=== PATIENT | male | born 1990 ===

== ENCOUNTER 2020-08-10 21:47 | Day surgery (SDC) | payer OTHER, SELFPAY ==
[2020-08-10 22:15] VITALS: BP 145/81; PULSE 65; RESP 18; TEMP 36.6; O2SAT 99; BMI 27.0
--- NOTE | 2020-08-10 23:32 | ED.GENADULT ---
HPI - General Adult General Chief complaint: General Medical Stated complaint: diff swallowing Time Seen by Provider: 08/10/20 23:24 Source: patient Mode of arrival: ambulatory Limitations: no limitations History of Present Illness HPI narrative: 29-year-old male otherwise healthy who was eating dinner with his , patient felt that piece of chicken got stuck in the middle of his esophagus, patient since then feel a fullness in his mid chest, unable to swallow his own saliva, can not drink any fluids. Started 1 hour ago. Related Data Allergies Allergy/AdvReac Type Severity Reaction Status Date / Time No Known Allergies Allergy Verified 08/10/20 22:14 [No Known Allergies*] Review of Systems Review of Systems: All other systems are reviewed and are negative Constitutional: Reports as per HPI and Reports no additional constitutional complaints Eyes: Reports as per HPI and Reports no additional eye complaints Reports system reviewed and no additional complaints, except as documented Cardiovascular: Reports as per HPI and Reports no additional cardiovascular complaints Respiratory: Reports as per HPI and Reports no additional respiratory complaints Gastrointestinal: Reports as per HPI and Reports no additional gastrointestinal complaints Genitourinary: Reports no additional female genitourinary complaints Musculoskeletal: Reports no additional musculoskeletal complaints Skin/Breast: Reports system reviewed and no additional complaints, except as docu Psychiatric: Reports no additional psychiatric complaints Endocrine: Reports no additional endocrine complaints Hematologic/Lymphatic: Reports no additional hematologic/lymphatic complaints Allergic/Immunologic: Reports no additional allergic/immunologic complaints Reports system reviewed and no additional complaints, except as documented and Reports Abnormal speech present [facility] Past Medical History Medical History Patient denies medical problems Social History Social History Advance Directives: No Advance Directives Information Provided: No Physical Exam Vital Signs: Vital Signs: Last Vital Signs Temp 97.8 F 08/10/20 22:15 Pulse 65 08/10/20 22:15 Resp 18 08/10/20 22:15 BP 145/81 H 08/10/20 22:15 Pulse Ox 99 08/10/20 22:15 Body Mass Index 27.0 Vital signs have been reviewed as appeared to be correct. Blood pressure in the high range l. Heart rate normal. Respiration rate normal. Temperature normal. Oxygen saturation normal. Appearance: Alert. Oriented X3. No acute distress. Head: Normal external exam. Normocephalic. Atraumatic. No Shrestha signs noted. No raccoon eyes noted Eyes: PERRLA. EOMI. Conjunctiva and sclera normal. Eyelids normal. ENT: TM's Normal. Pharynx normal. Uvula midline. Moist mucous membranes. No trismus noted. No drooling noted. No muffled voice noted. Neck: Normal inspection. Neck supple. FROM. No adenopathy. Thyroid Normal. No meningeal signs. No neck mass noted. CVS: Normal heart rate and rhythm. Heart sound normal. No murmurs noted. Pulses normal throughout. Respiratory: No respiratory distress. Painless inspiration. Breath sounds normal. No wheezes/rales/rhonchi noted. Chest nontender. No accessory muscle usage noted or decreased air movement noted. Abdomen: Soft and nontender. Bowel sounds normal in all 4 quadrants. No distention noted. No organomegaly noted. No visible injury noted. Back: No CVA tenderness. Full range of motion noted. Skin: Skin warm and dry. Normal skin color. Normal skin turgor. No rashes/lesions/lacerations noted. Extremities: No lower extremity edema. Extremities exhibit normal range of motion. Extremities nontender. Neuro: Oriented X 3. No motor deficit. No sensory deficit. Reflexes normal. Patient was given 2 sips of water unable to pass it down with regurgitation. Course Course Course Narrative: Assessment and plan. 29-year-old male who has pieces of chicken stuck in his chest and unable to swallow fluids or saliva, the case discussed with Dr. Meyers on-call for GI who recommended to give the patient IV Protonix/1 mg of glucagon/Ativan to relax the patient. And keep the patient NPO and he will do him 1st case in the morning around 7:30 a.m. Discharge Plan Discharge Clinical Impression: Foreign body, swallowed Instructions: Esophageal Foreign Body (ED) Referrals: Jamel Meyers [Physician] - 2 days
[2020-08-11] MEDS: Pantoprazole Sodium 40 MG/10 ML VIAL IVPUSH (00:13)
[2020-08-11] MEDS: LORazepam 2 MG/ML VIAL 1 MG IVPUSH (00:13)
--- NOTE | 2020-08-11 00:40 | PC.NURSE ---
PT TRAILED FOR SWALLOW BY DR CERVANTES AND THICK SECRETION CAME UP. IV MEDICATION ORDER AND ADMINISTERED WITH NO EFFECT GASTRO WILL BE NO BE ABLE TO COME IN TO THE AM PT AWARE. SUCTION AT BEDSIDE. PT MOVED TO MAIN ED BED 11 REPORT GIVEN TO ARABELLA RAYMUNDO.
[2020-08-11 06:11] VITALS: BP 122/69; PULSE 57; RESP 14; TEMP 36.4; O2SAT 95
--- NOTE | 2020-08-11 06:33 | PC.NURSE ---
pt awaiting procudure for endoscopy with dr melara at approx 0730 for fb removal via endoscopy. pt a/o3 no distress noted. skin pink warm and dry.
[2020-08-11 07:24] VITALS: BP 132/84; PULSE 69; RESP 16; TEMP 36.7; O2SAT 99
--- NOTE | 2020-08-11 07:46 | PM.EVENT ---
Event Note Date of Service: 08/11/20 Event Note: GI Consult-Full note dictated Imp: 29 yo male with an esophageal obstruction refractory to medical therapy. Rec: EGD with possible dilation with MAC today. Full consent has been obtained from him for this, including risks of bleeding and perforation. D/W patient in detail and he is comfortable with this plan.
--- NOTE | 2020-08-11 07:49 | HO.ANESPROP2 ---
[facility] Active Problems Active Problems: All Active Problems (Updated 08/10/20 @ 23:43 by Carlyle Garcia MD) Foreign body, swallowed (Acute) Past Medical History Medical History Patient denies medical problems Social History Social History Smoking Status: Never smoker Smoked in Last 30 Days: No Use of substances other than those prescribed or required for medical reasons: Yes Have you been hit, kicked, punched, or otherwise hurt by someone within the past year? If so, by whom?: No Advance Directives: No Advance Directives Information Provided: No Meds Allergies Allergy/AdvReac Type Severity Reaction Status Date / Time No Known Allergies Allergy Verified 08/10/20 22:14 [No Known Allergies*] Exam Exam Date and Time: August 11, 2020 0749 Height,Weight and Vital Signs: Height 6 ft 3 in Weight 97.976 kg Last Vital Signs Temp 98.0 F 08/11/20 07:24 Pulse 69 08/11/20 07:24 Resp 16 08/11/20 07:24 BP 132/84 08/11/20 07:24 Pulse Ox 99 08/11/20 07:24 Airway Mallampati Class: II TM Dist: >3cm Neck ROM: Full Loose/Missing/Broken Teeth: No Heart: RRR Lungs: CTA Assessment and Plan Assessment Anesthesia Assessment: Anesthesia Plan Discussed and Chart Reviewed Final Anesthetic Review NPO: Yes ASA Class: I Final Preanesthetic Review: Meds/Allgs Chart Reviewed, Consent Obtained/Reviewed and Anes Risks/Benef Reviewed Patient Risk: Low Procedure Risk: Intermediate Anesthetic Plan Anesthetic Plan: MAC: Disposition: Standard PACU
[2020-08-11] MEDS: Lactated Ringers 500 ML 50 ML IV (07:57)
--- NOTE | 2020-08-11 08:19 | PM.OP ---
Brief Operative Note Date of Service: 08/11/20 Pre-op diagnosis: Esophageal obstruction Post-op diagnosis: other (Same, Hiatal hernia) Procedure: Upper endoscopy with removal of foreign body Surgeon: Jamel Meyers Anesthesia: MAC Estimated blood loss (mL): 4.0 Pathology: none sent Condition: stable Disposition: PACU
[2020-08-11 08:24] VITALS: BP 127/68; PULSE 71; RESP 17; TEMP 36.6; O2SAT 96
--- NOTE | 2020-08-11 08:36 | OP_ITS ---
SURGEON: Jamel Meyers MD INDICATIONS: The patient presents for an evaluation of acute esophageal obstruction. PREOPERATIVE DIAGNOSIS: Esophageal obstruction. POSTOPERATIVE DIAGNOSIS: PROCEDURE PERFORMED: Esophagogastroduodenoscopy with removal of foreign body. Full consent has been obtained from him for this, including risks of bleeding and perforation. ESTIMATED BLOOD LOSS: COMPLICATIONS: ANESTHESIA: Monitored anesthesia care. ASSISTANTS: SPECIMENS: POSTOPERATIVE DIAGNOSES: Esophageal obstruction. Hiatal hernia. DESCRIPTION OF PROCEDURE: The patient was placed in the left lateral decubitus position. The Olympus video gastroscope was passed in the posterior oropharynx and upper esophagus under direct vision. The scope was passed slowly to the distal esophagus. The food bolus was seen at approximately 39 cm and then pushed easily into the stomach. There was some heme noted at the EG junction. There was some mild inflammatory changes. There may have been some disruption of a previous stricture, but this was not definitive. The scope did enter the stomach. There was a small hiatal hernia. I did advance into the pylorus, but at that point, the patient did have some retching, and given the food and secretions in the stomach, I did not want to risk aspiration. The gastric antrum appeared normal. I did not retroflex due to his retching and risk of aspiration. The scope was straightened and withdrawn back through the esophagus. Other than the inflammatory changes at the EG junction and some heme, the esophageal mucosa appeared normal. I did not visualize any proximal esophageal rings. The scope was withdrawn from the patient. He tolerated the procedure well and was returned to the recovery area in stable condition. IMPRESSION: 1. Esophageal foreign body, status post removal. 2. Hiatal hernia. PLAN: The patient will be discharged later today. He will be started on omeprazole 20 mg daily for 1 month, but I do not think he needs to be on it chronically. I have instructed him to call my office for followup and I would arrange for a followup barium swallow to be sure he does not need repeat endoscopy with any type of balloon dilation. This has been discussed with his significant other. MD SILVIA Hays/KELLIE / [phone]
[2020-08-11 08:45] VITALS: BP 133/86; PULSE 65; RESP 18; TEMP 36.6; O2SAT 97
--- NOTE | 2020-08-11 11:51 | CONS_ITS ---
DATE OF SERVICE: 08/11/2020 REFERRING PHYSICIAN: Carlyle Garcia MD REASON FOR CONSULTATION: Dysphagia and esophageal foreign body. HISTORY OF PRESENT ILLNESS: This has been obtained from the patient. The patient is a 29-year-old healthy male, who describes a longstanding history of occasional symptoms of dysphagia while eating. Those episodes typically lasts just for a few minutes and be relieved either by drinking some fluids or occasionally needing to regurgitate. However, the symptoms were few and far between, and typically his eating was comfortable without any other episodes of dysphagia. Last night while eating chicken, he developed another episode of dysphagia, but this time did not resolve. He was unable to swallow saliva nor liquids. He came to the ER and was refractory to treatment with glucagon and anxiolytic. He presently is still has the same issue with inability to swallow saliva nor secretions. He has some lower sternal discomfort, but no other chest pain or trouble breathing. MEDICATIONS: At home, none. PAST MEDICAL HISTORY: He denies any medical problems such as diabetes, heart disease, stroke, nor kidney disease. SOCIAL HISTORY: He smokes some marijuana. He does not smoke cigarettes. He does not use any significant amounts of alcohol. FAMILY HISTORY: Noncontributory. REVIEW OF SYSTEMS: CONSTITUTIONAL: Up until dinner, he has been feeling well with good energy and good appetite. SKIN: No rash. No pruritus. CARDIAC: No previous chest pain. PULMONARY: No cough. No hemoptysis. GI: He denies any chronic heartburn, anorexia. No early satiety. His bowel movements have been regular without any sign of bleeding. He denies any chronic abdominal pain. No jaundice. URINARY: No dysuria. No hematuria. PHYSICAL EXAMINATION: GENERAL: The patient is a pleasant alert, well-appearing male. SKIN: Warm and dry. Anicteric sclerae. Moist mucous membranes. NECK: Supple without lymphadenopathy nor crepitus. CHEST: Clear bilaterally. CARDIAC: Normal S1, S2. ABDOMEN: Soft, nondistended, nontender without mass. IMPRESSION: Given the patient's clinical history, he will undergo upper endoscopy with possible dilation and removal of foreign body with monitored anesthesia care today. Full consent has been obtained from him for this, including risks of bleeding and perforation. This has been discussed with the patient in detail and he is comfortable with this plan. Thank you for this consultation. MD SILVIA Hays/KELLIE / [phone]
== END 2020-08-11 09:10 | disposition home or self-care (01) ==
LOC: HO.ED 08-11 07:29 → HO.SSS 08-11 08:49
PROVIDERS: Emergency Provider Emergency Medicine; Visit Provider Internal Medicine
PROC: 0DJ08ZZ Inspection of Upper Intestinal Tract, Via Natural or Artificial Opening Endoscopic (ICD-10-PCS; CPT 43235; principal; 2020-08-11 08:00)
DX: T18.128A Food in esophagus causing other injury, initial encounter (principal); R13.10 Dysphagia, unspecified; K44.9 Diaphragmatic hernia without obstruction or gangrene; X58.XXXA Exposure to other specified factors, initial encounter; Y93.89 Activity, other specified; Y92.009 Unspecified place in unspecified non-institutional (private) residence as the place of occurrence of the external cause; Y99.8 Other external cause status; F12.90 Cannabis use, unspecified, uncomplicated
CPT/HCPCS: 43247; 99284; J1610; J2060; J2405

== ENCOUNTER 2024-03-01 09:27 | Outpatient (REF) | payer OTHER, SELFPAY | END 2024-03-01 09:28 | disposition home or self-care (01) | LOC: HO.LNP 09:27 | PROVIDERS: PCP Internal Medicine; Visit Provider Surgery | DX: L72.11 Pilar cyst (principal) | CPT/HCPCS: 11424; 88304; 99202 ==

== ENCOUNTER 2024-03-01 09:27 | Outpatient (AMB) | payer OTHER, SELFPAY ==
--- NOTE | 2024-03-01 09:35 | MHC.OFFVIS ---
Vital Signs 03/01/24 09:41 Height 6 ft 3 in BP 142/73 H Blood Pressure Location Rt brachial Position Sitting Pulse 55 Intake Visit Reasons: cyst scalp Intake Note: Patient referred by [facility] for cyst on scalp. Finished cephalexin course. Patient c/o: reports completed one round of abx, cyst scalp. Criminal Legal Assistant Required: No Accompanied by: Self / Same As Patient Allergies No Known Allergies [No Known Allergies*] Allergy (Verified 03/01/24 09:39) Medication List - Last Reconciled 03/01/24 by Edmund Fitzgerald MD No Known Home Meds HPI Comments Details: Patient presents for evaluation of a right scalp cyst. He has had this indeterminate time. He has grown to quite a large size, he would like to have removed. He has no such lesions elsewhere. Chart was reviewed and patient evaluated [facility], [facility] Medical History Patient denies medical problems Surgical History (Updated 03/01/24 @ 10:04 by Edmund Fitzgerald MD) No pertinent past surgical history Social History (Updated 03/01/24 @ 09:40 by BROWN Young) Alcohol intake: never Patient Tobacco Use Status: Never used Tobacco Physical Exam Vital Signs: Last Vital Signs Pulse 55 03/01/24 09:41 BP 142/73 H 03/01/24 09:41 HEENT Other: Patient has a massive right parietal scalp mass/pilar cyst measuring approximately 3 x 3 cm. Office Procedures Excision Details: Risks, benefits, alternatives of excision of right scalp cyst reviewed patient included but not limited to bleeding, infection, recurrence, numbness, pain, scarring, and the patient wishes to proceed. All questions answered. Consent signed. After appropriate positioning, patient underwent 1% lidocaine and Betadine prep and uneventfully longitudinal incision was made over the large scalp when which was uneventfully enucleated. Dimensions were roughly 3 x 3 cm. Specimen sent to pathology. Wound was irrigated, secured hemostasis, and closed using interrupted 2-0 Prolene sutures followed by bacitracin. Patient tolerated procedure well. 03221-Svhnhlpi scalp/neck/hands/feet/genitalia 3.1cm-4cm Procedure code (CPT) selection complete Office Meds lidocaine 1 %-epinephrine 1:100,000 injection solution Performing Provider: Edmund Fitzgerald MD [place] [facility] [place] [facility] Administered by: Edmund Fitzgerald MD on 03/01/24 10:03 Dose Route Admin Location Dispensed Lot Number Expiration Date ND Electrocardiograph Repairer 20 mL Infiltration 20 mL Assessment & Plan Assessment & Plan (1) Pilar cyst of scalp: Code(s): L72.11 - Pilar cyst Category: Surgical Plan: Patient was been given local instructions including ice to the wound periodically for next 2 days, bacitracin, Tylenol and Motrin for pain and patient will see me as directed or p.r.n.. Orders: Orders AMB Excision Today L72.11 - Pilar cyst Medications: New lidocaine-epinephrine 1 %-1:100,000 20 mL Infiltration ONCE 30 mL 0RF L72.11 - Pilar cyst Coding Level of Care Code New Pt Level 5 (81374) Diagnoses Pilar cyst of scalp L72.11 CPT Codes Scalp/Neck/Hands/Feet/Genetalia - CPT: 46519-Tnnnyraw scalp/neck/hands/feet/genitalia 3.1cm-4cm ([id number])
[2024-03-01 09:41] VITALS: BP 142/73; PULSE 55
== END 2024-03-01 10:02 | disposition home or self-care (01) ==
PROVIDERS: PCP Internal Medicine; Visit Provider Surgery
DX: L72.11 Pilar cyst (principal)
CPT/HCPCS: 11424; 99204

== ENCOUNTER 2024-03-15 13:37 | Outpatient (AMB) | payer OTHER, SELFPAY ==
--- NOTE | 2024-03-15 13:49 | A.OFFVIS_ITS ---
Vital Signs 03/15/24 13:59 Height 6 ft 3 in Weight 210 lb BMI 26.2 BP 132/64 Blood Pressure Location Rt brachial Position Sitting Pulse 51 Intake Visit Reasons: stitches removal Intake Note: Patient here s/p excision on rt posterior scalp on 03-01-24. Patient c/o: scabby along incision scar. Denies pain or discomfort. 4 sutures removed without incident. Infection Control Practitioner Required: No Accompanied by: Self / Same As Patient Allergies No Known Allergies [No Known Allergies*] Allergy (Verified 03/15/24 13:59) HPI Comments Details: Patient presents for follow-up. He has no wound issues or complaints. Pathology was benign [facility] Medical History Patient denies medical problems Surgical History (Updated 03/15/24 @ 14:07 by Edmund Fitzgerald MD) No pertinent past surgical history Social History (Updated 03/01/24 @ 09:40 by BROWN Young) Alcohol intake: never Patient Tobacco Use Status: Never used Tobacco Physical Exam Vital Signs: Last Vital Signs Pulse 51 03/15/24 13:59 BP 132/64 03/15/24 13:59 BMI result Body Mass Index 26.2 HEENT Other: Incision healing very well. Sutures uneventfully removed. Assessment & Plan Assessment & Plan (1) Postop check: Code(s): Z09 - Encounter for follow-up examination after completed treatment for conditions other than malignant neoplasm Category: Surgical Plan Patient was been given local instructions, and will otherwise follow-up p.r.n.. All questions answered Coding Level of Care Code Global (66500) Diagnoses Postop check Z09
[2024-03-15 13:59] VITALS: BP 132/64; PULSE 51; BMI 26.2
== END 2024-03-15 14:22 | disposition home or self-care (01) ==
PROVIDERS: PCP Internal Medicine; Visit Provider Surgery
DX: Z09 Encounter for follow-up examination after completed treatment for conditions other than malignant neoplasm (principal)
CPT/HCPCS: 99024

== ENCOUNTER → 2024-03-15 13:37 | Outpatient (BNVA) | payer OTHER, SELFPAY | PROVIDERS: PCP Internal Medicine; Visit Provider Surgery | DX: Z09 Encounter for follow-up examination after completed treatment for conditions other than malignant neoplasm (principal) | CPT/HCPCS: 99212 ==